=== PATIENT | male | born 1975 | race Caucasian/White ===

== ENCOUNTER 2024-04-02 08:43 | Emergency (ER) | payer OTHER ==
[2024-04-02 09:02] VITALS: BP 101/84; PULSE 70; RESP 18; TEMP 97.8; O2SAT 100
[2024-04-02] MEDS: Kenalog-40 IM ONE (09:03)
[2024-04-02] MEDS ORDERED: Kenalog-40 ONE (09:03)
--- NOTE | 2024-04-02 09:03 | ERPHSYRPT ---
- History of Present Illness Time Seen by Provider: 04/02/24 08:58 Source: patient Exam Limitations: no limitations Physician History: Patient is a 48-year-old white male who has been weed eating for a couple of days now presents with a pruritic vesicular excoriated rash of both forearms. This has been present for about 2436 hrs. He has a history of allergy to poison oak sumac and IV.He denies any other significant medical issues at present. Timing/Duration: hour(s) (36) Quality: burning, itchy Severity: moderate Location: extremities (Bilateral forearms) Possible Causes: poison april Associated Symptoms: No difficulty breathing Allergies/Adverse Reactions: No Known Drug Allergies Allergy (Unverified 04/02/24 08:56) - Review of Systems Constitutional: No Fever, No Chills Eyes: No Symptoms Ears, Nose, & Throat: No Symptoms Respiratory: No Cough, No Dyspnea Cardiac: No Chest Pain, No Edema, No Syncope Abdominal/Gastrointestinal: No Abdominal Pain, No Nausea, No Vomiting, No Diarrhea Genitourinary Symptoms: No Dysuria Musculoskeletal: No Back Pain, No Neck Pain Skin: Rash Neurological: No Dizziness, No Focal Weakness, No Sensory Changes Psychological: No Symptoms Endocrine: No Symptoms All Other Systems: Reviewed and Negative - Physical Exam General Appearance: no apparent distress, alert Eye Exam: PERRL/EOMI, eyes nml inspection Ears, Nose, Throat Exam: normal ENT inspection, pharynx normal, moist mucous membranes Neck Exam: normal inspection, non-tender, supple, full range of motion Respiratory Exam: normal breath sounds, lungs clear, No respiratory distress Cardiovascular Exam: regular rate/rhythm, normal heart sounds Gastrointestinal/Abdomen Exam: soft, mass, No tenderness Back Exam: normal inspection, normal range of motion, No CVA tenderness, No vertebral tenderness Extremity Exam: normal inspection, normal range of motion Neurologic Exam: alert, oriented x 3, cooperative, normal mood/affect, sensation nml, No motor deficits Skin Exam: rash (Rash is typical of contact dermatitis) SpO2 Interpretation: normal SpO2: 100 O2 Delivery: Room Air - Course Nursing assessment & vital signs reviewed: Yes Ordered Tests: Medication Summary Generic Name Dose Route Start Last Admin Trade Name Freq PRN Reason Stop Dose Admin Triamcinolone Acetonide 40 mg 04/02/24 08:57 Triamcinolone Acetonide 40 Mg/Ml Ml IM 04/02/24 08:58 STAT ONE - Progress Progress: unchanged Medical Desision Making - Risk of complications Minimal Risk: Minimal risk of morbidity - Departure Departure Disposition: Home Clinical Impression: Contact dermatitis Condition: Stable Critical Care Time: No Referrals: JHONATAN LAMAS PA [Primary Care Provider] - Follow up/PCP as directed Instructions: Poison April, Poison [place], Poison Sumac (DC) Prescriptions: Prednisone 10 mg [Deltasone 10 mg] 10 mg PO TID 7 Days #21 tablet
== END 2024-04-02 09:09 | disposition home or self-care (01) ==
LOC: ED 08:43
DX: L25.9 Unspecified contact dermatitis, unspecified cause (principal); Z79.52 Long term (current) use of systemic steroids
CPT/HCPCS: 96372; 99282; J3301

== ENCOUNTER 2024-08-22 17:25 | Observation (INO) | payer SELFPAY ==
[2024-08-22] MEDS ORDERED: Adacel Vial IM ONE (18:01)
[2024-08-22] MEDS: Adacel Vial IM ONE (18:04)
--- NOTE | 2024-08-22 18:13 | ERPHSYRPT ---
- History of Present Illness Time Seen by Provider: 08/22/24 18:00 Source: patient Exam Limitations: no limitations Patient Subjective Stated Complaint: Wound check to left knee Triage Nursing Assessment: Patient ambulated back to ED and transferred self to bed. Patient A+O X3. Gifty's skin pink, warm and dry. Patient states two days ago he had a staple from old carpet go into his left knee. Patient states he pulled it out, but area is red and he needs a tetanus shot. Left leg from knee down noted to be red and warm. Physician History: 49-year-old male presents to emergency department for evaluation of left knee pain swelling. Patient reports he was working on a floor. Patient was wearing kneepads. Patient states a staple went through his knee pad into his left knee. Injury occurred 2 days ago. Over the past couple days the left knee is gotten progressively swollen and tender. Patient has cellulitis from his knee down to his ankle. No systemic manifestations at this time. No fever. Tetanus is not up-to-date. No blunt trauma. Symptoms are mild to moderate in intensity. No specific worsening or improving factors. Patient voices no other complaints or concerns at this time. Portions of this note were created with voice recognition technology. There may be grammatical, spelling, punctuation or sound alike errors Timing/Duration: day(s) (2 days ago) Severity: moderate Modifying Factors: Improves With: nothing Associated Symptoms: denies symptoms Allergies/Adverse Reactions: No Known Drug Allergies Allergy (Verified 08/22/24 17:45) Home Medications: No Reportable Medications [No Reported Medications] 08/22/24 [History] Hx Tetanus, Diphtheria Vaccination/Date Given: No Hx Influenza Vaccination/Date Given: No Hx Pneumococcal Vaccination/Date Given: No Immunizations Up to Date: Yes Travel Risk - International Travel Have you traveled outside of the country in past 3 weeks: No - Emerging Infectious Disease Are you exhibiting symptoms associated with any current EIDs: No - Review of Systems Constitutional: No Symptoms, No Fever, No Chills Eyes: No Symptoms Ears, Nose, & Throat: No Symptoms Respiratory: No Symptoms, No Cough, No Dyspnea Cardiac: No Symptoms, No Chest Pain, No Edema, No Syncope Abdominal/Gastrointestinal: No Symptoms, No Abdominal Pain, No Nausea, No Vomiting, No Diarrhea Genitourinary Symptoms: No Symptoms, No Dysuria Musculoskeletal: No Symptoms, No Back Pain, No Neck Pain Skin: No Symptoms, No Rash Neurological: No Symptoms, No Dizziness, No Focal Weakness, No Sensory Changes Psychological: No Symptoms Endocrine: No Symptoms Hematologic/Lymphatic: No Symptoms Immunological/Allergic: No Symptoms All Other Systems: Reviewed and Negative - Past Medical History Pertinent Past Medical History: Yes Neurological History: No Pertinent History ENT History: No Pertinent History Cardiac History: Hypertension Respiratory History: No Pertinent History Endocrine Medical History: No Pertinent History Musculoskeletal History: No Pertinent History GI Medical History: No Pertinent History History: No Pertinent History Psycho-Social History: Anxiety Male Reproductive Disorders: No Pertinent History - Past Surgical History Past Surgical History: Yes Neuro Surgical History: No Pertinent History Cardiac: No Pertinent History Respiratory: No Pertinent History Gastrointestinal: No Pertinent History Genitourinary: No Pertinent History Musculoskeletal: Orthopedic Surgery Male Surgical History: No Pertinent History Other Surgical History: Left shoulder surgery - Social History Smoking Status: Current every day smoker How long have you smoked: years Exposure to second hand smoke: No Drug Use: none - Social Determinants of Health Will the patient participate in the screening: Yes Do you worry about a steady place to live?: No Do you have any problems with any of the following?: No known problems In the past 12 months,have you had to go without utilities?: No Transportation Issues: No Has anyone in your support network made you feel unsafe?: No Have you or anyone in your house had to go without enough: No - Nursing Vital Signs Nursing Vital Signs: Initial Vital Signs Temperature 98.1 F 08/22/24 17:46 Pulse Rate 77 08/22/24 17:46 Respiratory Rate 20 08/22/24 17:46 Blood Pressure 121/72 08/22/24 17:46 O2 Sat by Pulse Oximetry 98 08/22/24 17:46 Pain Scale Pain Intensity 0 - Physical Exam General Appearance: no apparent distress, alert Eye Exam: PERRL/EOMI, eyes nml inspection Ears, Nose, Throat Exam: normal ENT inspection, moist mucous membranes Neck Exam: normal inspection, non-tender, supple, full range of motion Respiratory Exam: normal breath sounds, lungs clear, airway intact, No respiratory distress Cardiovascular Exam: regular rate/rhythm, normal heart sounds, normal peripheral pulses Gastrointestinal/Abdomen Exam: soft, normal bowel sounds, No tenderness, No mass Back Exam: normal inspection, normal range of motion, No CVA tenderness, No vertebral tenderness Extremity Exam: normal inspection, normal range of motion, pelvis stable, other (Circumferential lower extremity cellulitis from the knee down to the ankle. Overlying soft tissue intact. The involved extremities neurovascular intact distally compartments are soft cap refill less than 2 seconds.) Neurologic Exam: alert, oriented x 3, cooperative, normal mood/affect, sensation nml, No motor deficits Skin Exam: normal color, warm, dry, No rash Lymphatic Exam: No adenopathy SpO2 Interpretation: normal SpO2: 98 O2 Delivery: Room Air - Course Nursing assessment & vital signs reviewed: Yes - Radiology Exams Knee X-ray Interpretation: Interpreted by me (No fracture or dislocation. No foreign body.) Ordered Tests: Active Orders 24 hr Category Date Time Status IV Insertion STAT Care 08/22/24 18:05 Active Pulse Oximetry (ED) STAT Care 08/22/24 18:05 Active KNEE (1 OR 2 VIEW) Stat Exams 08/22/24 18:04 Taken BLOOD CULTURE Stat Lab 08/22/24 18:49 Received CBC W DIFF Stat Lab 08/22/24 18:43 Completed CMP Stat Lab 08/22/24 18:43 Completed Transfer Order Routine Transfer 08/22/24 Ordered Medication Summary Discontinued Medications Generic Name Dose Route Start Last Admin Trade Name Freq PRN Reason Stop Dose Admin Diphtheria/Tetanus/Acell Pertussis 0.5 ml 08/22/24 17:50 08/22/24 18:04 Tdap --Diph,Pertuss(Acell),Tet Vac/Pf 0.5 Ml Vial IM 08/22/24 17:51 0.5 ml .ONCE ONE Administration Diphtheria/Tetanus/Acell Pertussis Confirm 08/22/24 18:01 Tdap --Diph,Pertuss(Acell),Tet Vac/Pf 0.5 Ml Vial Administered 08/22/24 18:02 Dose 0.5 ml IM .STK-MED ONE Vancomycin HCl 1 gm in 200 mls @ 125 mls/hr 08/22/24 18:06 08/22/24 19:38 Vancomycin 1 Gram/200 Ml Bag IV 08/22/24 19:41 125 mls/hr STAT ONE 125 mls/hr Administration Piperacillin Sod/Tazobactam 100 mls @ 200 mls/hr 08/22/24 18:07 08/22/24 18:57 Sod 3.375 gm/ Sodium Chloride IV 08/22/24 18:36 200 mls/hr STAT ONE Administration Sodium Chloride Confirm 08/22/24 18:52 Sodium Chloride 100ml Mini-Bag Plus Administered 08/22/24 18:53 Dose 100 mls @ ud IV .STK-MED ONE Vancomycin HCl Confirm 08/22/24 19:13 Vancomycin 1 Gram/200 Ml Bag Administered 08/22/24 19:14 Dose 1 gm in 200 mls @ ud IV .STK-MED ONE Ketorolac Tromethamine 30 mg 08/22/24 18:07 08/22/24 18:56 Ketorolac Tromethamine 30 Mg/Ml Inj IV 08/22/24 18:08 Not Given STAT ONE Ketorolac Tromethamine Confirm 08/22/24 18:51 Ketorolac Tromethamine 30 Mg/Ml Inj Administered 08/22/24 18:52 Dose 30 mg .ROUTE .STK-MED ONE Piperacillin Sod/Tazobactam Sod Confirm 08/22/24 18:51 Piperacillin/Tazobactam Sodium 3.375 Gm Vial Administered 08/22/24 18:52 Dose 3.375 gm IV .STK-MED ONE Lab/Rad Data: Laboratory Result Diagrams 08/22/24 18:43 08/22/24 18:43 Laboratory Results 08/22/24 08/22/24 Range/Units 18:43 18:43 WBC 11.1 H (4.23-9.07) x10^3/uL RBC 4.63 (4.63-6.08) x10^6/uL Hgb 13.5 L (13.7-17.5) g/dL Hct 40.2 (40.1-51.0) % MCV 86.8 (79.0-92.2) fL MCH 29.2 (25.7-32.2) pg MCHC 33.6 (32.3-36.5) g/dL RDW 12.3 (11.6-14.4) % Plt Count 292 (163-337) x10^3/uL MPV 9.6 (9.4-12.4) fL Gran % 65.1 (34.0-67.9) % Immature Gran % (Auto) 0.2 (0.001-0.429) % Nucleat RBC Rel Count 0.0 (0.00-0.2) % Eos # (Auto) 0.09 (0.04-0.54) x10^3/uL Immature Gran # (Auto) 0.02 (0.001-0.031) x10^3u/L Absolute Lymphs (auto) 2.88 (1.32-3.57) x10^3/uL Absolute Monos (auto) 0.80 (0.30-0.82) x10^3/uL Absolute Nucleated RBC 0.00 (0.00-0.012) x10^3u/L Lymphocytes % 26.0 (21.8-53.1) % Monocytes % 7.2 (5.3-12.2) % Eosinophils % 0.8 (0.8-7.0) % Basophils % 0.7 (0.2-1.2) % Absolute Granulocytes 7.19 H (1.78-5.38) x10^3/uL Basophils # 0.08 (0.01-0.08) x10^3/uL Sodium 144 (135-145) mmol/L Potassium 4.0 (3.5-5.1) mmol/L Chloride 109 H (98-107) mmol/L Carbon Dioxide 26 (22-30) mmol/L Anion Gap 12.7 (5-15) MEQ/L BUN 18 (9-20) mg/dL Creatinine 1.07 (0.66-1.25) mg/dL Estimated GFR 85.6 ML/MIN Glucose 107 H (74-106) mg/dL Calcium 9.3 (8.4-10.2) mg/dL Total Bilirubin 0.70 (0.2-1.3) mg/dL AST 35 (17-59) U/L ALT 27 (0-50) U/L Alkaline Phosphatase 59 (38-126) U/L Serum Total Protein 7.4 (6.3-8.2) g/dL Albumin 4.5 (3.5-5.0) g/dL - Progress Progress: improved Progress Note: 49-year-old male presents to our ED for evaluation of pain to his left knee after kneeling on a staple from an old rug. The staple went through his knee pad into his knee. The patient pulled the staple out. Injury occurred 2 days ago. Over the course of the past 2 days patient's left anterior knee became tender and swollen. On exam patient has circumferential cellulitis from the knee down to his ankle. Compartments are soft cap refill less than 2 seconds. Overlying soft tissue intact. No open or draining lesions. Laboratory workup reveals a leukocytosis of 11. Tetanus updated. Patient received vancomycin and Zosyn antibiotics. Patient will be admitted for further evaluation and treatment. Case discussed with hospitalist who accepts admission to observation at 8 PM. Plan of care discussed with patient. He agrees to admission to [facility] for further evaluation and treatment. Patient voices no other complaints or concerns at this time. X-ray of the involved knee is negative for fracture dislocation. No obvious foreign body. Formal read pending. Portions of this note were created with voice recognition technology. There may be grammatical, spelling, punctuation or sound alike errors Complexity of problem addressed is moderate acute complicated. No critical care time. Complexity of data reviewed and analyzed is extensive. Test ordered chest reviewed results analyzed and correlated clinically with history and physical examination. Dr. Capellan independently reviewed the x-ray of the left knee. Management discussed with hospitalist who accepts admission to observation. Risk of complication and or risk of morbidity/mortality of patient management is high. Patient requires hospitalization for further evaluation and treatment. Vital stable. Time spent admit patient approximately 20 minutes. Plan of care established for shared decision making. No social determinants of health present to impede follow-up. Portions of this note were created with voice recognition technology. There may be grammatical, spelling, punctuation or sound alike errors 08/22/24 20:04 Counseled pt/family regarding: lab results, diagnosis, rad results - Departure Departure Disposition: Observation Clinical Impression: Cellulitis, leg, Leukocytosis Condition: Stable Critical Care Time: No Referrals: JHONATAN LAMAS PA [Primary Care Provider] - Follow up/PCP as directed
[2024-08-22] MEDS ORDERED: TORAdol 30 mg Injection ONE (18:51)
[2024-08-22] MEDS ORDERED: PIPERACILLIN/TAZOBACTAM IV ONE ×2 (18:51→22:24)
[2024-08-22] MEDS ORDERED: Sodium Chloride 100ML MINI-BAG PLUS 100 ML IV ONE ×2 (18:52→22:25)
[2024-08-22 18:55] LABS: Absolute Neutrophil Ct (ANC) 7.19 x10^3/uL (1.78-5.38); BASOPHIL % 0.7 % (0.2-1.2); Basophil (Absolute #) 0.08 x10^3/uL (0.01-0.08); Eosinophil % 0.8 % (0.8-7.0); Eosinophil (Absolute #) 0.09 x10^3/uL (0.04-0.54); Hematocrit 40.2 % (40.1-51.0); Hemoglobin 13.5 g/dL (13.7-17.5); IMMATURE GRAN # 0.02 x10^3u/L (0.001-0.031); IMMATURE GRAN % 0.2 % (0.001-0.429); Lymphocyte (Absolute #) 2.88 x10^3/uL (1.32-3.57); Mean Cell Volume 86.8 fL (79.0-92.2); Mean Corpuscular Hemoglobin 29.2 pg (25.7-32.2); Mean Corpuscular Hgb Concent. 33.6 g/dL (32.3-36.5); Mean Platelet Volume 9.6 fL (9.4-12.4); Monocytes % 7.2 % (5.3-12.2); Neutrophil % 65.1 % (34.0-67.9); Platelet Count 292 x10^3/uL (163-337); Red Blood Count 4.63 x10^6/uL (4.63-6.08); Red Cell Distribution Width 12.3 % (11.6-14.4); White Blood Count 11.1 x10^3/uL (4.23-9.07)
[2024-08-22] MEDS: TORAdol 30 mg Injection IV ONE (18:56)
[2024-08-22] MEDS: PIPERACILLIN/TAZOBACTAM 3.375 GM in Sodium Chloride 100ML MINI-BAG PLUS 100 ML IV ONE (18:57)
[2024-08-22 19:13] LABS: ALBUMIN 4.5 g/dL (3.5-5.0); ANION GAP 12.7 MEQ/L (5-15); BILIRUBIN,TOTAL 0.7 mg/dL (0.2-1.3); Calcium 9.3 mg/dL (8.4-10.2); Creatinine 1 1.07 mg/dL (0.66-1.25); EST GLOMERULAR FILTRATION RATE 85.6 ML/MIN; Total Protein 7.4 g/dL (6.3-8.2)
[2024-08-22] MEDS ORDERED: VANCOMYCIN 1 GRAM/200 ML BAG 1 GM/200 ML PIGGYBACK IV ONE (19:13)
[2024-08-22] MEDS: VANCOMYCIN 1 GRAM/200 ML BAG 1 GM/200 ML PIGGYBACK IV ONE (19:38)
[2024-08-22 20:47] VITALS: O2SAT 97
[2024-08-22] MEDS ORDERED: TORAdol 30 mg Injection IV PRN (21:10)
[2024-08-22] MEDS ORDERED: Zofran 4 MG/2 ML VIAL IV PRN (21:11)
[2024-08-22] MEDS ORDERED: TYLENOL 325 MG PO PRN (21:11)
[2024-08-22] MEDS ORDERED: MILK OF MAGNESIA 30 ML PO PRN (21:11)
--- NOTE | 2024-08-22 21:37 | PCM.HP ---
History of Present Illness - Chief Complaint Chief Complaint: Cellulitis Date: 08/22/24 History of Present Illness: is a 49 year old male with a history of hypertension and depression who presented to emergency department for evaluation of left knee pain swelling. The patient reported he was working on a floor 2 days ago and was wearing kneepads, but a staple went through his knee pad into his left knee. Over the past couple days the left knee is gotten progressively swollen and tender. Patient has a rash develop from his knee down to his ankle. He denied fever. Tetanus was not up-to-date and was administered in the ED with IV antibiotics. After treatment initiation, his rash has improved. He has no left knee crepitus or limitation to range of motion. - Review of Systems Constitutional: No Symptoms Eyes: No Symptoms Ears, Nose, & Throat: No Symptoms Respiratory: No Symptoms Cardiac: No Symptoms Abdominal/Gastrointestinal: No Symptoms Genitourinary Symptoms: No Symptoms Musculoskeletal: No Symptoms Skin: Cellulitis, Rash Neurological: No Symptoms Psychological: No Symptoms Endocrine: No Symptoms Hematologic/Lymphatic: No Symptoms Immunological/Allergic: No Symptoms All Other Systems: Reviewed and Negative Medications & Allergies Home Medications: Home Medication List Fluoxetine HCl 10 mg [Prozac 10 mg] 20 mg PO DAILY 08/22/24 [History Confirmed 08/22/24] Lisinopril 10 mg [Zestril 10 MG] 10 mg PO DAILY 08/22/24 [History Confirmed 08/22/24] Allergies/Adverse Reactions: Allergies Allergy/AdvReac Type Severity Reaction Status Date / Time No Known Drug Allergies Allergy Verified 08/22/24 17:45 - Past Medical History Past Medical History: Yes Neurological History: No Pertinent History ENT History: No Pertinent History Cardiac History: Hypertension Respiratory History: No Pertinent History Endocrine Medical History: No Pertinent History Musculoskelatal History: No Pertinent History GI Medical History: No Pertinent History History: No Pertinent History Pyscho-Social History: Anxiety Male Reproductive Disorders: No Pertinent History - Past Surgical History Past Surgical History: Yes Neuro Surgical History: No Pertinent History Cardiac History: No Pertinent History Respiratory Surgery: No Pertinent History GI Surgical History: No Pertinent History Genitourinary Surgical Hx: No Pertinent History Musculskeletal Surgical Hx: Orthopedic Surgery Male Surgical History: No Pertinent History Other Surgical History: Left shoulder surgery Family History: No family history of infections - Social History Smoking Status: Current every day smoker How long have you smoked: years Exposure to second hand smoke: No Alcohol: None Drug Use: none - Social Determinants of Health Will the patient participate in the screening: Yes Do you worry about a steady place to live?: No Do you have any problems with any of the following?: No known problems In the past 12 months,have you had to go without utilities?: No Have you or anyone in your house had to go without enough: No Transportation Issues: No Has anyone in your support network made you feel unsafe?: No Does the patient want assistance with any of the above?: No - Physical Exam Vital Signs: Vital Signs - 24 hr Temp Pulse Resp BP Pulse Ox 08/22/24 20:33 97.8 F 65 20 116/86 97 08/22/24 20:07 98 08/22/24 19:20 76 18 118/72 98 08/22/24 18:14 98 08/22/24 17:46 98.1 F 77 20 121/72 98 General Appearance: no apparent distress, alert Neurologic Exam: alert, oriented x 3, cooperative, utility mechanic II-XII nml as tested, normal mood/affect, nml cerebellar function Eye Exam: PERRL/EOMI, eyes nml inspection Ears, Nose, Throat Exam: normal ENT inspection Neck Exam: normal inspection, non-tender, supple, full range of motion Respiratory Exam: normal breath sounds, lungs clear Cardiovascular Exam: regular rate/rhythm, normal heart sounds Gastrointestinal/Abdomen Exam: soft, normal bowel sounds Back Exam: normal range of motion Extremity Exam: normal range of motion Skin Exam: rash (confluent rash around left knee, without induration or fluctuance.) Results - Labs Lab/Micro Results: Lab Results-Last 24 Hours 08/22/24 08/22/24 Range/Units 18:43 18:43 WBC 11.1 H (4.23-9.07) x10^3/uL RBC 4.63 (4.63-6.08) x10^6/uL Hgb 13.5 L (13.7-17.5) g/dL Hct 40.2 (40.1-51.0) % MCV 86.8 (79.0-92.2) fL MCH 29.2 (25.7-32.2) pg MCHC 33.6 (32.3-36.5) g/dL RDW 12.3 (11.6-14.4) % Plt Count 292 (163-337) x10^3/uL MPV 9.6 (9.4-12.4) fL Gran % 65.1 (34.0-67.9) % Immature Gran % (Auto) 0.2 (0.001-0.429) % Nucleat RBC Rel Count 0.0 (0.00-0.2) % Eos # (Auto) 0.09 (0.04-0.54) x10^3/uL Immature Gran # (Auto) 0.02 (0.001-0.031) x10^3u/L Absolute Lymphs (auto) 2.88 (1.32-3.57) x10^3/uL Absolute Monos (auto) 0.80 (0.30-0.82) x10^3/uL Absolute Nucleated RBC 0.00 (0.00-0.012) x10^3u/L Lymphocytes % 26.0 (21.8-53.1) % Monocytes % 7.2 (5.3-12.2) % Eosinophils % 0.8 (0.8-7.0) % Basophils % 0.7 (0.2-1.2) % Absolute Granulocytes 7.19 H (1.78-5.38) x10^3/uL Basophils # 0.08 (0.01-0.08) x10^3/uL Sodium 144 (135-145) mmol/L Potassium 4.0 (3.5-5.1) mmol/L Chloride 109 H (98-107) mmol/L Carbon Dioxide 26 (22-30) mmol/L Anion Gap 12.7 (5-15) MEQ/L BUN 18 (9-20) mg/dL Creatinine 1.07 (0.66-1.25) mg/dL Estimated GFR 85.6 ML/MIN Glucose 107 H (74-106) mg/dL Calcium 9.3 (8.4-10.2) mg/dL Total Bilirubin 0.70 (0.2-1.3) mg/dL AST 35 (17-59) U/L ALT 27 (0-50) U/L Alkaline Phosphatase 59 (38-126) U/L Serum Total Protein 7.4 (6.3-8.2) g/dL Albumin 4.5 (3.5-5.0) g/dL - Radiology Impressions Radiology Exams & Impressions: Radiology Procedures Category Date Time Status KNEE (1 OR 2 VIEW) Stat Exams 08/22/24 18:04 Taken Assessment/Plan (1) Cellulitis, leg Current Visit: Yes Status: Acute Assessment & Plan: IV antibiotics. Improving. Borders marked. Will follow clinical course. Received tetanus shot in ED. (2) Leukocytosis Current Visit: Yes Status: Acute Assessment & Plan: Monitoring trend. On antibiotics. Code(s): D72.829 - ELEVATED WHITE BLOOD CELL COUNT, UNSPECIFIED (3) Essential hypertension Current Visit: Yes Status: Acute Assessment & Plan: Resume lisinopril. Monitor BP. Code(s): I10 - ESSENTIAL (PRIMARY) HYPERTENSION (4) Depression Current Visit: Yes Status: Acute Assessment & Plan: Resume home medication. Code(s): F32.A - DEPRESSION, UNSPECIFIED Telemedicine Encounter - Telemedicine Encounter Telemedicine Encounter: "The entirety of this encounter was performed via Telemedicine" This visit was performed using real-time audio and video connection between my location and thepatients locationwith the assistance of a surrogateat the patients location. Written or verbal consent was obtained from the patient/guardian to perform this visit usingnchrKwikpiktelemedicine technology. Any patient questions regarding the telemedicine interaction were answered.
[2024-08-22] MEDS: VANCOMYCIN 1 GRAM/200 ML BAG 1 GM/200 ML PIGGYBACK IV SCH (22:17)
[2024-08-22] MEDS: Prozac 20 MG PO SCH (22:28)
[2024-08-23] VITALS: BP 92/51; PULSE 68; RESP 18; TEMP 97.3
[2024-08-23] MEDS: PIPERACILLIN/TAZOBACTAM 3.375 GM in Sodium Chloride 100ML MINI-BAG PLUS 100 ML IV SCH
--- NOTE | 2024-08-23 04:44 | PCM.DS ---
Discharge Summary Date of Admission: 08/22/24 20:10 Date of Discharge: 08/23/24 Admitting Physician: DALE BROWN MD Primary Care Provider: DIRK LAMAS Allergies Allergies No Known Drug Allergies Allergy (Verified 08/22/24 17:45) Hospital Summary - Hospital Course Hospital Course: Patient presented to the hospital with cellulitis of the left leg and was treated with vancomycin and Zosyn. His rash has remarkably improved. The patient will be discharged on oral Augmentin to complete a 5 day course. - Vitals & Intake/Output Vital Signs: Vital Signs Temperature 97.3 F 08/22/24 23:58 Pulse Rate 68 08/22/24 23:58 Respiratory Rate 18 08/22/24 23:58 Blood Pressure 92/51 08/22/24 23:58 O2 Sat by Pulse Oximetry 97 08/22/24 23:58 Intake & Output: Intake & Output 08/20/24 08/21/24 08/22/24 08/23/24 11:59 11:59 11:59 11:59 Intake Total 600 Balance 600 Weight 76.7 kg - Lab Result Diagrams: 08/22/24 18:43 08/22/24 18:43 Lab Results-Last 24 Hrs: Lab Results-Last 24 Hours 08/22/24 08/22/24 Range/Units 18:43 18:43 WBC 11.1 H (4.23-9.07) x10^3/uL RBC 4.63 (4.63-6.08) x10^6/uL Hgb 13.5 L (13.7-17.5) g/dL Hct 40.2 (40.1-51.0) % MCV 86.8 (79.0-92.2) fL MCH 29.2 (25.7-32.2) pg MCHC 33.6 (32.3-36.5) g/dL RDW 12.3 (11.6-14.4) % Plt Count 292 (163-337) x10^3/uL MPV 9.6 (9.4-12.4) fL Gran % 65.1 (34.0-67.9) % Immature Gran % (Auto) 0.2 (0.001-0.429) % Nucleat RBC Rel Count 0.0 (0.00-0.2) % Eos # (Auto) 0.09 (0.04-0.54) x10^3/uL Immature Gran # (Auto) 0.02 (0.001-0.031) x10^3u/L Absolute Lymphs (auto) 2.88 (1.32-3.57) x10^3/uL Absolute Monos (auto) 0.80 (0.30-0.82) x10^3/uL Absolute Nucleated RBC 0.00 (0.00-0.012) x10^3u/L Lymphocytes % 26.0 (21.8-53.1) % Monocytes % 7.2 (5.3-12.2) % Eosinophils % 0.8 (0.8-7.0) % Basophils % 0.7 (0.2-1.2) % Absolute Granulocytes 7.19 H (1.78-5.38) x10^3/uL Basophils # 0.08 (0.01-0.08) x10^3/uL Sodium 144 (135-145) mmol/L Potassium 4.0 (3.5-5.1) mmol/L Chloride 109 H (98-107) mmol/L Carbon Dioxide 26 (22-30) mmol/L Anion Gap 12.7 (5-15) MEQ/L BUN 18 (9-20) mg/dL Creatinine 1.07 (0.66-1.25) mg/dL Estimated GFR 85.6 ML/MIN Glucose 107 H (74-106) mg/dL Calcium 9.3 (8.4-10.2) mg/dL Total Bilirubin 0.70 (0.2-1.3) mg/dL AST 35 (17-59) U/L ALT 27 (0-50) U/L Alkaline Phosphatase 59 (38-126) U/L Serum Total Protein 7.4 (6.3-8.2) g/dL Albumin 4.5 (3.5-5.0) g/dL - Radiology Exams Ordered Rad Exams-Entire Visit: Radiology Procedures Category Date Time Status KNEE (1 OR 2 VIEW) Stat Exams 08/22/24 18:04 Taken - Procedures and Test Procedures and Tests throughout Hospitalization: Therapy Orders & Screens 08/22/24 21:11 PT Eval & Treat ( Order) ONCE Reason for Eval:: knee cellulitis. Mobility assessment Diagnosis: Cellulitis Discharge Exam General Appearance: no apparent distress, alert Neurologic Exam: alert, oriented x 3, cooperative, gluer and slicer hand II-XII nml as tested, normal mood/affect, nml cerebellar function Eye Exam: PERRL, EOMI, eyes nml inspection Ears, Nose, Throat Exam: normal ENT inspection Neck Exam: normal inspection, non-tender, supple, full range of motion Respiratory Exam: normal breath sounds, lungs clear Cardiovascular Exam: regular rate/rhythm, normal heart sounds Gastrointestinal/Abdomen Exam: soft, normal bowel sounds Back Exam: normal range of motion Extremity Exam: normal range of motion Skin Exam: rash (marked improvement in left leg erythema around knee.) Final Diagnosis/Problem List - Final Discharge Diagnosis/Problem (1) Cellulitis, leg Current Visit: Yes Status: Acute (2) Leukocytosis Current Visit: Yes Status: Acute Code(s): D72.829 - ELEVATED WHITE BLOOD CELL COUNT, UNSPECIFIED (3) Essential hypertension Current Visit: Yes Status: Acute Code(s): I10 - ESSENTIAL (PRIMARY) HYPERTENSION (4) Depression Current Visit: Yes Status: Acute Code(s): F32.A - DEPRESSION, UNSPECIFIED Telemedicine Encounter - Telemedicine Encounter Telemedicine Encounter: "The entirety of this encounter was performed via Telemedicine" This visit was performed using real-time audio and video connection between my location and thepatients locationwith the assistance of a surrogateat the patients location. Written or verbal consent was obtained from the patient/guardian to perform this visit usingLRNnchrFiggutelemedicine technology. Any patient questions regarding the telemedicine interaction were answered. Please note that this discharge required greater than 30 minutes to complete. - Discharge Disposition: Home, Self-Care Condition: Stable Prescriptions: New Amox Tr/Potass Clav. 875 mg [Augmentin 875-125 Tablet] 1 each PO Q12H 5 Days #10 tablet Continue Lisinopril 10 mg [Zestril 10 MG] 10 mg PO DAILY Fluoxetine HCl 10 mg [Prozac 10 mg] 20 mg PO HS Follow up with: JHONATAN LAMAS PA [Primary Care Provider] -
[2024-08-23] MEDS ORDERED: PIPERACILLIN/TAZOBACTAM IV ONE (05:42)
[2024-08-23] MEDS ORDERED: Sodium Chloride 100ML MINI-BAG PLUS 100 ML IV ONE (05:43)
--- NOTE | 2024-08-23 08:46 | XRAY ---
Indication: Pain. No known injury. Comparison: None AP/lateral left knee demonstrates very minimal medial joint space narrowing and minimal scattered vascular calcifications. Also mild soft tissue swelling/bursitis anterior to tibial tuberosity. No other bony, articular, or soft tissue abnormalities.
[2024-08-23] MEDS ORDERED: Prozac 20 MG PO SCH (10:00)
[2024-08-23] MEDS ORDERED: Zestril 10 MG PO SCH (10:00)
[2024-08-23] MEDS ORDERED: ENOXAPARIN SODIUM SQ SCH (10:00)
[2024-08-23] MEDS ORDERED: Acidophilus TABLET PO SCH (10:00)
== END 2024-08-23 06:30 | disposition home or self-care (01) ==
LOC: ED 17:25 → MED SURG 20:10
PROVIDERS: ADMIT Internal Medicine; ATTEND Internal Medicine
DX: L03.116 Cellulitis of left lower limb (principal); I10 Essential (primary) hypertension; F17.200 Nicotine dependence, unspecified, uncomplicated; D72.829 Elevated white blood cell count, unspecified; F32.A Depression, unspecified
CPT/HCPCS: 36000; 36415; 73560; 80053; 85025; 87040; 90471; 90715; 94760; 96365; 96367; 96374; 99285; G0378; J1885; Q3014; A9270-GY; J3370